=== PATIENT | male | born 1940 | race Caucasian/White ===

== ENCOUNTER 2019-10-25 05:11 | Inpatient (IN) ==
[2019-10-15 16:40] LABS: Appearance,Urine CLEAR; Bilirubin,Urine NEG (NEG); Color,Urine YELLOW; Culture Indicated,Urine NO; Glucose,Urine (UA) NEGATIVE (NEG); Ketones,Urine NEG (NEG); Leukocyte Esterase,Urine NEG /uL (NEG); Nitrate,Urine NEG (NEG); Protein,Urine NEG (NEG); Specific Gravity,Urine 1.012 (1.000-1.035); Urine Blood NEG mg/dL (<0.03); Urobilinogen,Urine NEG (NEG)
[2019-10-15 18:43] LABS: Basophils # (Auto) 0.04 K/mcL (0.00-0.30); Basophils % (Auto) 0.7 % (0.0-2.0); Eosinophils # (Auto) 0.08 K/mcL (0.00-0.70); Eosinophils % (Auto) 1.4 % (0.0-7.0); Hematocrit 38.6 % (40.1-51.0); Hemoglobin 12.8 g/dL (13.7-17.5); Lymphocytes # (Auto) 1.84 K/mcL (1.50-4.80); Lymphocytes % (Auto) 31.5 % (15.5-49.0); Mean Cell Volume 100.3 fL (80.0-100.0); Mean Corpuscular HGB Conc 33.2 g/dL (31.0-36.0); Mean Platelet Volume 11.3 fL (7.4-10.4); Monocytes # (Auto) 0.96 K/mcL (0.10-0.90); Monocytes % (Auto) 16.4 % (1.0-12.0); Platelet Count 159 K/mcL (140-440); RBC 3.85 M/mcL (4.63-6.08); WBC 5.8 K/mcL (4.50-11.00)
[2019-10-15 19:04] LABS: Prothrombin Time 14.1 sec (11.9-14.5)
[2019-10-15 19:20] LABS: ALT/SGPT 10 U/l (0-40); AST/SGOT 15 U/l (0-37); Albumin 4.2 gm/dL (3.2-5.2); Albumin/Globulin Ratio 1.4 (1.0-2.3); Alkaline Phosphatase 51 U/L (39-117); Bilirubin,Total 0.3 mg/dL (0.0-1.0); Blood Urea Nitrogen 20 mg/dl (8-23); Calcium 9.5 mg/dl (8.6-10.4); Carbon Dioxide 28 mmol/L (22-30); Chloride 100 mmol/L (96-108); Glomerular Filtration Rate 53; Glucose 87 mg/dL (70-105)
[2019-10-19 11:58] LABS: Hemoglobin A1C 6.1 % HGB (4.0-6.0)
[~2019-10-25 05:11] MED LIST: IPRATROPIUM/ALBUTEROL 3 ML AMPUL.NEB NEB PRN; SCOPOLAMINE 1 PATCH PATCH TOPICAL PRN
[2019-10-25] MEDS ORDERED: CELECOXIB 200 MG CAPSULE PO SCH ×2 (07:00→12:03)
[2019-10-25] MEDS ORDERED: PREGABALIN 75 MG CAPSULE PO SCH ×2 (07:00→12:03)
[2019-10-25] MEDS ORDERED: ceFAZolin 2 GM in DEXTROSE 5% IN WATER 50 ML IV SCH ×2 (07:00→12:03)
[2019-10-25] MEDS ORDERED: oxyCODONE 10 MG TAB.ER.12H PO SCH ×2 (07:00→12:03)
[2019-10-25] MEDS ORDERED: PHENYLEPHRINE 10 MG/ML VIAL IV ONE (07:45)
[2019-10-25] MEDS ORDERED: SUCCINYLCHOLINE 20 MG/ML ML IV ONE (07:45)
[2019-10-25] MEDS ORDERED: DEXAMETHASONE 10 MG/ML VIAL IV ONE (07:45)
[2019-10-25] MEDS ORDERED: HETASTARCH 6% 500 ML BAG IV ONE (07:45)
[2019-10-25] MEDS ORDERED: ONDANSETRON 4 MG/2 ML VIAL IV ONE (07:45)
[2019-10-25] MEDS ORDERED: TRANEXAMIC ACID 1,000 MG/10 ML VIAL IV ONE ×2 (07:45→12:06)
[2019-10-25] MEDS ORDERED: fentaNYL 100 MCG/2 ML VIAL IV ONE (07:45)
[2019-10-25] MEDS ORDERED: LIDOCAINE HCL/PF 100 MG/5 ML SYRINGE IV ONE (07:45)
[2019-10-25] MEDS ORDERED: ePHEDrine 50 MG/ML AMPUL IV ONE (07:45)
[2019-10-25] MEDS ORDERED: PROPOFOL 200 MG/20 ML VIAL IV ONE (07:45)
[2019-10-25] MEDS ORDERED: KETAMINE 100 MG/ML ML IV ONE (07:45)
[2019-10-25] MEDS ORDERED: GLYCOPYRROLATE 0.2 MG/ML VIAL IV ONE (07:45)
[2019-10-25] MEDS ORDERED: 0.9 % SODIUM CHLORIDE 250 ML IV SCH ×2 (09:00→12:03)
[2019-10-25] MEDS ORDERED: ePHEDrine 50 MG/ML AMPUL IV PRN (09:20)
[2019-10-25] MEDS ORDERED: METHOCARBAMOL 1,000 MG/10 ML VIAL IV PRN (09:20)
[2019-10-25] MEDS ORDERED: diphenhydrAMINE 50 MG/ML VIAL IV PRN (09:20)
[2019-10-25] MEDS ORDERED: ACETAMINOPHEN 1,000 MG/100 ML BOTTLE IV ONE (09:20)
[2019-10-25] MEDS ORDERED: MEPERIDINE 25 MG/ML SYRINGE IV PRN (09:20)
[2019-10-25] MEDS ORDERED: ONDANSETRON 4 MG/2 ML VIAL IV PRN ×4 (09:20→12:06)
[2019-10-25] MEDS ORDERED: METOPROLOL TARTRATE 5 MG/5 ML VIAL IV PRN ×2 (09:20→12:42)
[2019-10-25] MEDS ORDERED: IPRATROPIUM/ALBUTEROL 3 ML AMPUL.NEB NEB PRN ×2 (09:20→12:03)
[2019-10-25] MEDS ORDERED: PROMETHAZINE 25 MG/ML VIAL IV PRN (09:20)
[2019-10-25] MEDS ORDERED: ATROPINE SULFATE 0.4 MG/ML VIAL IV PRN (09:20)
[2019-10-25] MEDS: TRANEXAMIC ACID 1,000 MG/10 ML VIAL IV ONE ×2 (09:23→11:41)
[2019-10-25] MEDS ORDERED: LACTATED RINGERS 1,000 ML IV SCH (09:30)
--- NOTE | 2019-10-25 09:46 | Brief Operative Note ---
Date of procedure: 10/25/19 Pre-op diagnosis: L hip arthrosis Post-op diagnosis: same Procedure: Left Total hip Grafts/Implants: Yes Anesthesia: GETA, spinal Findings: large lipoma Surgeon: Andrew Myers Continuous Vulcanizing Machine Operator: Chauncey Kennedy Specimens Removed/Pathology: other (large lipoma) Condition: stable Disposition: PACU
[2019-10-25 10:08] LABS: POC Blood Urea Nitrogen 15 mg/dl (8-23); POC CO2 23 mmol/L (22-30); POC Chloride 106 mmol/L (96-108); POC Creatinine 1.2 mg/dl (0.7-1.2); POC Glucose, Random 167 mg/dL (70-105); POC Potassium 4.5 mmol/L (3.3-5.1); POC Sodium 143 mmol/L (133-145)
--- NOTE | 2019-10-25 10:09 | XRay Report ---
CLINICAL INFORMATION: left anterior total hip arthroplasty COMPARISON: None. FINDINGS: Multiple digital images from the OR are submitted. Final images show left total hip prostheses in anatomic position. No osseous abnormality. Soft tissue swelling seen - as expected IMPRESSION: Left total hip prostheses in anatomic alignment. Interpreted and Authenticated by: López Peters 10/25/19
[2019-10-25] MEDS: fentaNYL 100 MCG/2 ML VIAL IV PRN ×5 (10:10→10:58)
[2019-10-25] MEDS ORDERED: DEXTROSE 50% 50 ML VIAL IV PRN ×2 (11:32→12:03)
[2019-10-25] MEDS ORDERED: DEXTROSE 31 GM ORAL.SUSP PO PRN ×2 (11:32→12:03)
[2019-10-25] MEDS ORDERED: 0.9 % SODIUM CHLORIDE 1,000 ML IV SCH (11:45)
--- NOTE | 2019-10-25 11:52 | Internal Medicine Consult Note ---
Medical - CN: HPI - Data of Consult Consult date: 10/25/19 Requesting physician: Andrew Myers Primary Care Provider: Hunter Mckeon - Consult Narrative Reason for consult: postop, blood loss History of present illness: Mr. Schuster is a 78 year old M with a hx of atrial flutter, itral valve insuffi ciency, s/p repair and high blood pressure who underwent left hip replacement this morning by Orth Dr. Myers. I was called for medical consult due to patient's heart condition and also bleeding 1000 cc during the procedure. Saw and examined patient immediately in PACU. Patient patient was alert and awake. She complains of left hip pain otherwise he did not answer any questions. CC: Andrew Myers Review of systems: Unable to complete because the patient does not answer any questions Medical - CN: PMH Pertinent family history: Unable to complete because the patient does not answer any questions Medical - CN: Meds Home Medications Medication Instructions Recorded Confirmed Type Allopurinol [Zylopriim] 300 mg PO DAILY 10/15/19 10/15/19 History Cyanocobalamin (Vitamin B-12) 2,000 mcg PO DAILY 10/15/19 10/15/19 History [Vitamin B-12] Ferrous Gluconate [Fergon] 324 mg PO DAILY 10/15/19 10/15/19 History Levothyroxine [Synthroid] 75 mcg PO QAMAC 10/15/19 10/15/19 History Losartan [Cozaar] 100 mg PO DAILY 10/15/19 10/15/19 History Torsemide [Demadex] 20 mg PO BIDD 10/15/19 10/15/19 History Vitamin D3 5,000 unit PO DAILY 10/15/19 10/15/19 History metFORMIN [Glucophage] 500 mg PO BIDCC 10/15/19 10/15/19 History traMADol [Ultram] 100 mg PO TID 10/15/19 10/15/19 History Allergies Allergy/AdvReac Type Severity Reaction Status Date / Time niacin Allergy Severe Anaphylaxis Verified 12/15/15 08:18 Medical - CN: Exam - Constitutional Vitals: Temp Pulse Resp BP Pulse Ox 99.6 F H 55 L 12 115/68 97 10/25/19 06:45 10/25/19 11:18 10/25/19 11:18 10/25/19 11:18 10/25/19 11:18 - Additional findings Additional findings: General - No acute distress Eyes - PERRLA, EOM intact ENT no rhinorrhea, no noticeable or palpable swelling, no redness or rash around throat or on face Neck supple, no JVD, no thyromegaly Respiratory: Lungs -clear, no wheezing or crackles. Cardiovascular - RRR no m/r/g, GI - Normal bowel sounds, no distended, soft. Extremeties - No edema, cyanosis or clubbing. Dressing dry Hemo/lymphatic/immune no lymphadenopathy Neurological Alert and oriented x 3, no focal neurological deficits. Psychiatry flat affect Medical - CN: Result - Labs CBC & Chem 7: 10/15/19 15:05 10/15/19 15:05 Medical - CN: A/P - Narrative A/P Narrative: Assessment: 1. S/p left hip replacement 2. Anemia of blood loss 2. Hx of atrial flutter 3. Mitral valve insufficiency, s/p repair 4. HTN 5. DM type 2 ? Plan: 1. Postop management including pain control and DVT prophylaxis by Ortho team 2. media monitor H/H Q12hrs IV fluid 3. EKG showed sinus or ectopic atrial rhythm Heart rate is controlled Patient is not on anticoagulation. We will discuss with the patient. 4. Monitor blood pressure 5. Diabetic diet Metformin is on hold Insulin sliding scale Hemoglobin A1c 6. DVT prophylaxis: No pharmacological DVT prophylaxis. SCD 7. CODE STATUS: Patient does not answer any questions now. We need to discuss with the patient later.
--- NOTE | 2019-10-25 11:56 | XRay Report ---
CLINICAL INFORMATION: s/p left anterior total hip arthroplasty COMPARISON: None. FINDINGS: Left total hip prosthesis in anatomic position. No osseous abnormality. Both SI and right hip joint is normal in width and alignment without arthritic change. Cam configuration right femoral head and neck noted. Mild soft tissue swelling of the surgical site seen - as expected IMPRESSION: Left hip prostheses in anatomic alignment. Interpreted and Authenticated by: López Peters 10/25/19
[2019-10-25] MEDS ORDERED: SCOPOLAMINE 1 PATCH PATCH TOPICAL PRN (12:03)
[2019-10-25] MEDS ORDERED: MAGNESIUM HYDROXIDE 30 ML ORAL.SUSP PO PRN (12:06)
[2019-10-25] MEDS ORDERED: BENZOCAINE/MENTHOL 1 LOZENGE PO PRN (12:06)
[2019-10-25] MEDS ORDERED: FLEETS ADULT ENEMA PR PRN (12:06)
[2019-10-25] MEDS ORDERED: BISACODYL 10 MG SUPP.RECT PR PRN (12:06)
[2019-10-25] MEDS ORDERED: POLYETHYLENE GLYCOL 3350 17 GM PACKET PO PRN (12:06)
[2019-10-25] MEDS ORDERED: LABETALOL 5 MG/ML ML IV PRN (12:41)
--- NOTE | 2019-10-25 12:43 | Internal Med Progress Note ---
Medical - PN: Subj Patient information: Note initiated : 10/25/19 at 12:33 pm Service Date, if different from initiated Date: [] Patient: Katie Schuster a 78 y/o M admitted on 10/25/19 for Left Anterior Total Hip Arthroplasty. Chief Complaint: [] Interval history: Mr. Schuster is a 78 year old M with a hx of atrial flutter, itral valve insufficiency, s/p repair and high blood pressure who underwent left hip replacement this morning by Orth Dr. Myers. I was called for medical consult due to patient's heart condition and also bleeding 1000 cc during the procedure. Saw and examined patient immediately in PACU. Patient patient was alert and awake. She complains of left hip pain otherwise he did not answer any questions. 10/25 - Constitutional Vitals: Vital Signs Temp Pulse Resp BP Pulse Ox 98.3 F 55 L 8 L 103/74 100 10/25/19 11:32 10/25/19 11:18 10/25/19 11:32 10/25/19 11:32 10/25/19 11:32 Period Temp Pulse Resp BP Sys/Michelle Pulse Ox Last 24 Hr 98.3 F-99.6 F 55-76 8-20 103-152/63-86 90-100 Intake and Output 10/24/19 10/25/19 10/25/19 21:59 05:59 13:59 Intake Total 120 2600 Output Total 1250 Balance 120 1350 Weight 104.417 kg 102.603 kg Patient Weight 10/26/19 05:59 Weight 102.603 kg Intake & Output: Intake & Output 10/24/19 10/25/19 10/25/19 21:59 05:59 13:59 Intake Total 120 2600 Output Total 1250 Balance 120 1350 Weight 104.417 kg 102.603 kg Intake: IV 100 Oral 0 Clear Carbohydrate Drink 120 IV - Manual Only 2500 Output: Void Amount 0 Estimated Blood Loss 1250 Exam: General: Alert, Awake, No acute Distress Eyes/N/T: EOMI, Head/Neck: neck supple, CV: , No murmurs, Pulm: Clear b/l, no wheezing/rhonchi/rales Abd: soft, nontender, +BS x4 Ext: no clubbing/cyanosis/edema. E dressing intact Neuro: Alert, no focal deficits, moves all extremities, Skin: warm/dry Medical - PN: Obj Da - Labs CBC & Chem 7: 10/15/19 15:05 10/15/19 15:05 Labs: Abnormal Lab Results 10/25/19 10:00 POC Hct 31.0 L POC Glucose 167 H Meds: Medications Aspirin (Ecotrin) 325 mg PO BID [facility] Bisacodyl (Dulcolax) 10 mg MN Q2-3DAYS PRN PRN Reason: Constipation Cefazolin Sodium (Ancef) 1 gm IV Q8H [facility] Stop: 10/25/19 20:16 Cyanocobalamin (Vitamin B-12) 2,000 mcg PO DAILY [facility] Dextrose (Dextrose 50%) 0 ml IV UD PRN PRN Reason: Hypoglycemia Diagnostic Test (Pha) (Accu-Chek) 1 each FS ACHS [facility] Docusate Sodium (Colace) 100 mg PO BID [facility] Docusate Sodium (Colace) 100 mg PO BID [facility] Ferrous Gluconate (Fergon) 324 mg PO DAILY [facility] Glucose (Insta-Glucose) 15 gm PO PRN PRN PRN Reason: Hypoglycemia Hydromorphone HCl (Dilaudid) 0 mg IV Q2HP PRN; Protocol PRN Reason: Per Pain Protocol Sodium Chloride (Sodium Chloride 0.9%) 1,000 mls @ 75 mls/hr IV .[id number] [facility] Sodium Chloride (Sodium Chloride 0.9%) 1,000 mls @ 100 mls/hr IV .Q10H [facility] Insulin Human Lispro (Humalog) 0 unit SQ ACHS [facility]; Protocol Levothyroxine Sodium (Synthroid) 75 mcg PO QAMAC [facility] Losartan Potassium (Cozaar) 100 mg PO DAILY [facility] Magnesium Hydroxide (Milk Of Magnesia) 30 ml PO BIDP PRN PRN Reason: Constipation Methocarbamol (Robaxin) 750 mg PO Q6HP PRN PRN Reason: Muscle Spasm Ondansetron HCl (Zofran) 4 mg IV Q4HP PRN; Protocol PRN Reason: Nausea And Vomiting Ondansetron HCl (Zofran) 4 mg IV Q4HP PRN PRN Reason: Nausea And Vomiting Oxycodone/Acetaminophen (Percocet 5-325 Mg) 0 tab PO Q4HP PRN PRN Reason: PAIN LEVEL 3-6 Polyethylene Glycol (Miralax) 17 gm PO DAILYP PRN PRN Reason: Constipation Senna (Senokot) 2 tab PO HS [facility] Sodium Biphosphate/Sodium Phosphate (Fleets Adult) 1 dose MN Q3-4DAYS PRN PRN Reason: Constipation Sodium Chloride (Saline Flush) 10 ml IV Q8 [facility] Sodium Chloride (Saline Flush) 10 ml IV Q8 [facility] Throat Lozenges (Cepacol) 1 lozenge PO PRN PRN PRN Reason: Sore Throat Tranexamic Acid (Tranexamic Acid) 1,000 mg IV ONCE ONE Stop: 10/25/19 12:07 Medical - PN: A/P - Time Spent With Patient Total time spent is greater than 50% in coordination of care (as documented) at patient's floor/unit and/or counseling patient: - Narrative A/P Narrative: *s/p Left TUNDE (10/24): *Anemia, acute blood loss: *Hx of atrial flutter: -EKG showed sinus or ectopic atrial. In [address] on anticoagulation for recurrent hematuria *Mitral valve insufficiency, s/p repair: *HTN: *Pre-Diabetes: A1c 6.1 *CKD II-III: *Hypothyroidism: Plan: -Postop management including pain control and DVT prophylaxis by Ortho team -quality assurance monitor body -H/H Q12hrs -IV fluid -Patient is not on anticoagulation. We will discuss with the patient. -Monitor blood pressure, ADA diet, Metformin is on hold, SSI -cont home ARB -start home torsemide in AM -ppx: SCD
[2019-10-25] MEDS ORDERED: HYDROmorphone 0.5 MG/0.5 ML SYRINGE ONE (12:44)
[2019-10-25] MEDS: 0.9 % SODIUM CHLORIDE 1,000 ML IV SCH ×3 (12:45→20:21)
[2019-10-25] MEDS ORDERED: HYDROmorphone 1 MG/ML SYRINGE ONE (13:39)
[2019-10-25] MEDS: HYDROmorphone 1 MG/ML SYRINGE IV PRN ×2 (13:40→15:51)
[2019-10-25] MEDS ORDERED: 0.9 % SODIUM CHLORIDE 10 ML SYRINGE IV SCH (14:00)
[2019-10-25 14:28] LABS: Basophils # (Auto) 0.01 K/mcL (0.00-0.30); Basophils % (Auto) 0.1 % (0.0-2.0); Eosinophils # (Auto) 0 K/mcL (0.00-0.70); Eosinophils % (Auto) 0 % (0.0-7.0); Hematocrit 31.6 % (40.1-51.0); Hemoglobin 10.4 g/dL (13.7-17.5); Lymphocytes # (Auto) 0.71 K/mcL (1.50-4.80); Lymphocytes % (Auto) 5.9 % (15.5-49.0); Mean Cell Volume 99.7 fL (80.0-100.0); Mean Corpuscular HGB Conc 32.9 g/dL (31.0-36.0); Mean Platelet Volume 10.7 fL (7.4-10.4); Monocytes # (Auto) 0.12 K/mcL (0.10-0.90); Platelet Count 152 K/mcL (140-440); RBC 3.17 M/mcL (4.63-6.08); Red Cell Distribution Width 13.7 % (11.5-14.5)
[2019-10-25 14:40] LABS: INR 1.2 (0.9-1.1); Prothrombin Time 15.6 sec (11.9-14.5)
[2019-10-25 14:47] LABS: ALT/SGPT 8 U/l (0-40); AST/SGOT 19 U/l (0-37); Albumin 3.5 gm/dL (3.2-5.2); Alkaline Phosphatase 38 U/L (39-117); Bilirubin,Direct < 0.2 mg/dL (0.0-0.3); Bilirubin,Total 0.4 mg/dL (0.0-1.0); Blood Urea Nitrogen 16 mg/dl (8-23); Calcium 8.8 mg/dl (8.6-10.4); Carbon Dioxide 22 mmol/L (22-30); Chloride 103 mmol/L (96-108); Glomerular Filtration Rate 58; Glucose 214 mg/dL (70-105); Lactate Dehydrogenase 221 U/L (94-250); Phosphorous 3.3 mg/dL (2.7-4.5); Triglycerides 174 mg/dl (<150); Uric Acid 4.8 mg/dL (2.5-8.0)
[2019-10-25 14:49] LABS: Albumin/Globulin Ratio 1.6 (1.0-2.3); Globulin 2.2 gm/dL (2.2-3.7)
[2019-10-25] MEDS: METHOCARBAMOL 750 MG TABLET PO PRN ×2 (15:30→21:25)
[2019-10-25] MEDS: 0.9 % SODIUM CHLORIDE 10 ML SYRINGE IV SCH ×4 (15:41→20:12)
[2019-10-25] MEDS ORDERED: ACETAMINOPHEN 1,000 MG/100 ML BOTTLE IV PRN (15:46)
[2019-10-25] MEDS: INSULIN LISPRO 1 UNIT/0.01 ML UNIT SQ SCH ×2 (16:07→20:20)
[2019-10-25] MEDS: ceFAZolin 1 GM VIAL IV SCH ×2 (16:08→23:40)
[2019-10-25] MEDS: LORazepam 2 MG/ML VIAL IV PRN ×2 (16:08→23:39)
[2019-10-25] MEDS: CELECOXIB 200 MG CAPSULE PO SCH (16:25)
[2019-10-25] MEDS ORDERED: INSULIN LISPRO 1 UNIT/0.01 ML UNIT SQ SCH (17:00)
[2019-10-25] MEDS ORDERED: metFORMIN 500 MG TAB.XL.24H PO SCH (17:30)
[2019-10-25] MEDS: oxyCODONE/APAP 5/325MG TABLET PO PRN ×2 (17:40→21:25)
[2019-10-25] MEDS: DOCUSATE SODIUM 100 MG CAPSULE PO SCH ×2 (20:12→20:14)
[2019-10-25] MEDS: ASPIRIN 325 MG ENTERIC COATED TABLET PO SCH (20:14)
[2019-10-25] MEDS: SENNOSIDES 1 TABLET PO SCH (20:14)
[2019-10-25] MEDS ORDERED: DOCUSATE SODIUM 100 MG CAPSULE PO SCH (21:00)
[2019-10-26] MEDS: 0.9 % SODIUM CHLORIDE 1,000 ML IV SCH (01:23)
[2019-10-26] MEDS: CELECOXIB 200 MG CAPSULE PO SCH ×3 (01:23→20:12)
[2019-10-26] MEDS: oxyCODONE/APAP 5/325MG TABLET PO PRN ×5 (01:23→18:51)
[2019-10-26] MEDS: LORazepam 2 MG/ML VIAL IV PRN (04:23)
[2019-10-26] MEDS: 0.9 % SODIUM CHLORIDE 10 ML SYRINGE IV SCH ×6 (04:24→20:13)
[2019-10-26] MEDS: METHOCARBAMOL 750 MG TABLET PO PRN ×3 (05:19→20:12)
[2019-10-26 07:02] LABS: Basophils # (Auto) 0.01 K/mcL (0.00-0.30); Basophils % (Auto) 0.1 % (0.0-2.0); Eosinophils # (Auto) 0 K/mcL (0.00-0.70); Eosinophils % (Auto) 0 % (0.0-7.0); Granulocytes % (Auto) 77.1 % (38.0-78.0); Hematocrit 27.2 % (40.1-51.0); Hemoglobin 8.7 g/dL (13.7-17.5); Lymphocytes # (Auto) 0.86 K/mcL (1.50-4.80); Lymphocytes % (Auto) 7.8 % (15.5-49.0); Mean Cell Volume 101.5 fL (80.0-100.0); Mean Platelet Volume 11.3 fL (7.4-10.4); Monocytes # (Auto) 1.65 K/mcL (0.10-0.90); Platelet Count 149 K/mcL (140-440); RBC 2.68 M/mcL (4.63-6.08); Red Cell Distribution Width 14.1 % (11.5-14.5)
[2019-10-26] MEDS: LEVOTHYROXINE 75 MCG TABLET PO SCH (07:21)
[2019-10-26] MEDS ORDERED: LEVOTHYROXINE 75 MCG TABLET PO SCH (07:30)
[2019-10-26 07:33] LABS: Bilirubin,Direct < 0.2 mg/dL (0.0-0.3); Chloride 104 mmol/L (96-108)
[2019-10-26 07:34] LABS: ALT/SGPT 8 U/l (0-40); AST/SGOT 27 U/l (0-37); Albumin 3.1 gm/dL (3.2-5.2); Albumin/Globulin Ratio 1.4 (1.0-2.3); Alkaline Phosphatase 31 U/L (39-117); Bilirubin,Total 0.3 mg/dL (0.0-1.0); Blood Urea Nitrogen 20 mg/dl (8-23); Calcium 8.3 mg/dl (8.6-10.4); Carbon Dioxide 20 mmol/L (22-30); Globulin 2.2 gm/dL (2.2-3.7); Glomerular Filtration Rate 64; Glucose 158 mg/dL (70-105); Lactate Dehydrogenase 230 U/L (94-250); Triglycerides 145 mg/dl (<150); Uric Acid 5.2 mg/dL (2.5-8.0)
[2019-10-26 07:35] LABS: ALT/SGPT 8 U/l (0-40); AST/SGOT 27 U/l (0-37); Albumin 3.3 gm/dL (3.2-5.2); Albumin/Globulin Ratio 1.7 (1.0-2.3); Alkaline Phosphatase 30 U/L (39-117); Bilirubin,Total 0.3 mg/dL (0.0-1.0); Blood Urea Nitrogen 20 mg/dl (8-23); Calcium 8.5 mg/dl (8.6-10.4); Carbon Dioxide 19 mmol/L (22-30); Chloride 104 mmol/L (96-108); Globulin 1.9 gm/dL (2.2-3.7); Glomerular Filtration Rate 58; Glucose 157 mg/dL (70-105)
--- NOTE | 2019-10-26 07:39 | Orthopedic Progress Note ---
Subjective Patient information: Note initiated : 10/26/19 at 7:37 am Service Date, if different from initiated Date: [] Patient: Katie Schuster a 78 y/o M admitted on 10/25/19 for Left Anterior Total Hip Arthroplasty. Chief Complaint: [S/P LEFT TUNDE] PATIENT IS DOING WELL AND HAS NO PARTICULAR COMPLAINTS RELATED TO HIS LEFT HIP. HE DOES HAVE SOME VAGUE BILATERAL RADICULAR/CLAUDICATION-LIKE SYMPTOMS. HE DENIES ANY NEW ONSET CHEST PAIN, SOA, OR LOWER EXTREMITY CALF TENDERNESS. Principal diagnosis: S/P LEFT TUNDE Objective Vital signs: Vital Signs Temp Pulse Pulse Pulse Pulse Resp BP 10/26/19 06:02 24 H 123/65 10/26/19 04:02 99.4 F H 44 L 18 120/60 10/26/19 02:04 19 122/45 10/26/19 01:52 55 L 22 10/26/19 00:02 98.1 F 58 L 13 106/66 10/25/19 22:01 59 L 9 L 137/66 10/25/19 20:27 98.3 F 76 16 140/81 10/25/19 19:01 55 L 16 110/69 10/25/19 18:01 64 21 102/63 10/25/19 17:01 73 19 121/65 10/25/19 16:10 75 16 10/25/19 16:02 81 21 115/91 10/25/19 15:46 73 26 H 126/88 10/25/19 15:31 17 113/68 10/25/19 15:16 97.2 F 73 15 108/68 10/25/19 15:01 64 12 108/88 10/25/19 14:46 70 10 L 117/75 10/25/19 14:42 69 11 L 114/67 10/25/19 14:34 95/69 10/25/19 14:32 77 17 78/68 10/25/19 14:16 73 15 111/74 10/25/19 14:01 74 19 102/76 10/25/19 13:42 98 H 21 113/82 10/25/19 13:40 40 L 14 165/130 10/25/19 13:18 75 18 110/56 10/25/19 13:02 68 28 H 94/76 10/25/19 12:46 12 107/68 10/25/19 12:31 75 17 110/68 10/25/19 12:16 60 12 107/71 10/25/19 12:01 54 L 14 116/66 10/25/19 11:46 58 L 15 110/63 10/25/19 11:39 55 L 12 103/74 10/25/19 11:36 64 158/135 10/25/19 11:32 98.3 F 8 L 10/25/19 11:18 55 L 55 L 12 10/25/19 11:11 62 62 13 10/25/19 11:00 55 L 55 L 15 10/25/19 10:45 65 65 17 10/25/19 10:30 65 15 10/25/19 10:15 74 74 14 10/25/19 10:08 76 76 14 10/25/19 10:03 73 73 15 10/25/19 09:58 73 73 17 BP BP Pulse Ox 10/26/19 06:02 96 10/26/19 04:02 92 10/26/19 02:04 98 10/26/19 01:52 93 10/26/19 00:02 93 10/25/19 22:01 100 10/25/19 20:27 98 10/25/19 19:01 100 10/25/19 18:01 100 10/25/19 17:01 98 10/25/19 16:10 97 10/25/19 16:02 96 10/25/19 15:46 100 10/25/19 15:31 10/25/19 15:16 100 10/25/19 15:01 97 10/25/19 14:46 99 10/25/19 14:42 98 10/25/19 14:34 10/25/19 14:32 78/68 10/25/19 14:16 100 10/25/19 14:01 100 10/25/19 13:42 99 10/25/19 13:40 90 10/25/19 13:18 100 10/25/19 13:02 99 10/25/19 12:46 10/25/19 12:31 100 10/25/19 12:16 100 10/25/19 12:01 95 10/25/19 11:46 98 10/25/19 11:39 99 10/25/19 11:36 99 10/25/19 11:32 103/74 100 10/25/19 11:18 115/68 97 10/25/19 11:11 133/66 98 10/25/19 11:00 127/71 10/25/19 10:45 128/75 96 10/25/19 10:30 128/69 95 10/25/19 10:15 125/66 97 10/25/19 10:08 108/73 95 10/25/19 10:03 127/63 97 10/25/19 09:58 117/69 90 Intake and Output 10/25/19 10/26/19 10/26/19 21:59 05:59 13:59 Intake Total 1304 240 Output Total 400 750 Balance 904 -510 Intake: IV 404 Sodium Chloride 0.9% 1,000 ml @ 209 75 mls/hr IV .[id number] [facility] Rx#: [id number] Lactated Ringers 1,000 ml @ 20 95 mls/hr IV .Q24H [facility] Rx#: [id number] Oral 900 240 Output: Void Amount 400 750 Other: Urine Appearance Clear Clear Urine Color Dark Yellow Dark Yellow Urine Odor Normal Normal Weight 224 lb Intake & Output: Intake & Output 10/25/19 10/26/19 10/26/19 21:59 05:59 13:59 Intake Total 1304 240 Output Total 400 750 Balance 904 -510 Weight 224 lb Intake: IV 404 Sodium Chloride 0.9% 1,000 ml @ 209 75 mls/hr IV .[id number] [facility] Rx#: [id number] Lactated Ringers 1,000 ml @ 20 95 mls/hr IV .Q24H [facility] Rx#: [id number] Oral 900 240 Output: Void Amount 400 750 Other: Urine Appearance Clear Clear Urine Color Dark Yellow Dark Yellow Urine Odor Normal Normal Incision: Yes healing, Yes clean and dry Incision clean and dry: Yes Dressing: Yes clean, Yes dry, Yes intact Weight bearing status: full Neurological exam IM: Yes alert, Yes oriented X3, Yes motor sensory intact, Yes neurovascular intact Extremities exam IM: Yes calf tenderness (NEGATIVE BILATERALLY), Yes Hill's sign (NEGATIVE BILATERALLY), Yes Foot pink and warm, Yes neurovascular intact - Labs CBC & BMP: 10/26/19 04:42 10/26/19 04:42 Labs: Orthopedic Labs 10/25/19 10/15/19 13:30 15:05 PT 15.6 H 14.1 INR 1.2 H 1.0 10/26/19 10/26/19 10/25/19 04:42 04:42 13:30 Hgb 8.7 L 10.4 L Hct 27.2 L TNP 31.6 L 10/15/19 15:05 Hgb 12.8 L Hct 38.6 L Assessment and Plan (1) S/P total hip arthroplasty LIKELY DISCHARGE TO HOME TOMORROW IF MEDICALLY STABLE PER HOSPITALIST. REPEAT HGB/HCT TOMORROW AM. AMBULATE TODAY WITH PT. Status: Acute
--- NOTE | 2019-10-26 07:47 | Internal Med Progress Note ---
Medical - PN: Subj Patient information: Note initiated : 10/26/19 at 7:43 am Service Date, if different from initiated Date: [] Patient: Katie Schuster a 78 y/o M admitted on 10/25/19 for Left Anterior Total Hip Arthroplasty. Chief Complaint: [] Interval history: Mr. Schuster is a 78 year old M with a hx of atrial flutter, itral valve insufficiency, s/p repair and high blood pressure who underwent left hip replacement this morning by Orth Dr. Myers. I was called for medical consult due to patient's heart condition and also bleeding 1000 cc during the procedure. Saw and examined patient immediately in PACU. Patient patient was alert and awake. She complains of left hip pain otherwise he did not answer any questions. 10/25 Patient has hip pain and lower back pain that is chronic. Poor sleep past couple nights. No chest pain shortness of breath or new complaints. Review of Systems: denies headache/fever/chills/nausea/vomiting/chest or abdominal pain/cough/dyspnea/diarrhea. Otherwise see above. - Constitutional Vitals: Vital Signs Temp Pulse Resp BP Pulse Ox 99.4 F H 44 L 24 H 123/65 96 10/26/19 04:02 10/26/19 04:02 10/26/19 06:02 10/26/19 06:02 10/26/19 06:02 Period Temp Pulse Resp BP Sys/Michelle Pulse Ox Last 24 Hr 97.2 F-99.4 F 40-98 8-28 78-165/45-135 90-100 Intake and Output 10/25/19 10/26/19 10/26/19 21:59 05:59 13:59 Intake Total 1304 240 120 Output Total 400 750 Balance 904 -510 120 Weight 101.605 kg Intake & Output: Intake & Output 10/25/19 10/26/19 10/26/19 21:59 05:59 13:59 Intake Total 1304 240 120 Output Total 400 750 Balance 904 -510 120 Weight 101.605 kg Intake: IV 404 Sodium Chloride 0.9% 1,000 ml @ 209 75 mls/hr IV .[id number] [facility] Rx#: [id number] Lactated Ringers 1,000 ml @ 20 95 mls/hr IV .Q24H [facility] Rx#: [id number] Oral 900 240 120 Output: Void Amount 400 750 Other: Urine Appearance Clear Clear Urine Color Dark Yellow Dark Yellow Urine Odor Normal Normal Exam: General: Alert, Awake, No acute Distress Eyes/N/T: EOMI, Head/Neck: neck supple, CV: regular with occasional ectopic, No murmurs, Pulm: Clear b/l, no wheezing/rhonchi/rales Abd: soft, nontender, +BS x4 Ext: no clubbing/cyanosis/edema. LLE dressing intact Neuro: Alert, no focal deficits, moves all extremities, Skin: warm/dry Medical - PN: Obj Da - Labs CBC & Chem 7: 10/26/19 04:42 10/26/19 04:42 Labs: Abnormal Lab Results 10/26/19 10/26/19 10/26/19 04:42 04:42 04:42 WBC RBC 2.68 L Hgb 8.7 L Hct 27.2 L POC Hct MCV 101.5 H MPV 11.3 H Gran % Lymph % (Auto) 7.8 L [place] % (Auto) 15.0 H Gran # 8.48 H Lymph # (Auto) 0.86 L [place] # (Auto) 1.65 H PT INR Carbon Dioxide 20 L 19 L Glucose 158 H 157 H POC Glucose Calcium 8.3 L 8.5 L Alkaline Phosphatase 31 L 30 L Total Protein 5.3 L 5.2 L Albumin 3.1 L Globulin 1.9 L Triglycerides 10/25/19 10/25/19 10/25/19 13:30 13:30 13:30 WBC 12.0 H RBC 3.17 L Hgb 10.4 L Hct 31.6 L POC Hct MCV MPV 10.7 H Gran % 93.0 H Lymph % (Auto) 5.9 L [place] % (Auto) Gran # 11.17 H Lymph # (Auto) 0.71 L [place] # (Auto) PT 15.6 H INR 1.2 H Carbon Dioxide Glucose 214 H POC Glucose Calcium Alkaline Phosphatase 38 L Total Protein 5.7 L Albumin Globulin Triglycerides 174 H 10/25/19 10:00 WBC RBC Hgb Hct POC Hct 31.0 L MCV MPV Gran % Lymph % (Auto) [place] % (Auto) Gran # Lymph # (Auto) [place] # (Auto) PT INR Carbon Dioxide Glucose POC Glucose 167 H Calcium Alkaline Phosphatase Total Protein Albumin Globulin Triglycerides Meds: Medications Aspirin (Ecotrin) 325 mg PO BID [facility] Last Admin: 10/25/19 20:14 Dose: 325 mg Documented by: Bisacodyl (Dulcolax) 10 mg NC Q2-3DAYS PRN PRN Reason: Constipation Celecoxib (Celebrex) 200 mg PO BID [facility] Last Admin: 10/26/19 01:23 Dose: 200 mg Documented by: Cyanocobalamin (Vitamin B-12) 2,000 mcg PO DAILY [facility] Dextrose (Dextrose 50%) 0 ml IV UD PRN PRN Reason: Hypoglycemia Diagnostic Test (Pha) (Accu-Chek) 1 each FS ACHS [facility] Last Admin: 10/26/19 07:42 Dose: 1 each Documented by: Docusate Sodium (Colace) 100 mg PO BID [facility] Last Admin: 10/25/19 20:14 Dose: 100 mg Documented by: Docusate Sodium (Colace) 100 mg PO BID [facility] Last Admin: 10/25/19 20:12 Dose: Not Given Documented by: Ferrous Gluconate (Fergon) 324 mg PO DAILY [facility] Glucose (Insta-Glucose) 15 gm PO PRN PRN PRN Reason: Hypoglycemia Hydromorphone HCl (Dilaudid) 0 mg IV Q2HP PRN; Protocol PRN Reason: Per Pain Protocol Last Admin: 10/25/19 15:51 Dose: 1 mg Documented by: Sodium Chloride (Sodium Chloride 0.9%) 1,000 mls @ 75 mls/hr IV .[id number] [facility] Last Admin: 10/26/19 01:23 Dose: Not Given Documented by: Sodium Chloride (Sodium Chloride 0.9%) 1,000 mls @ 100 mls/hr IV .Q10H [facility] Last Admin: 10/25/19 20:21 Dose: 100 mls/hr Documented by: Acetaminophen (Ofirmev) 1,000 mg in 100 mls @ 200 mls/hr IV Q8HP PRN; Protocol PRN Reason: PAIN/FEVER > 101 Last Infusion: 10/25/19 16:39 Dose: Infused Documented by: Insulin Human Lispro (Humalog) 0 unit SQ ACHS [facility]; Protocol Last Admin: 10/25/19 20:20 Dose: 3 unit Documented by: Labetalol HCl (Trandate) 0 mg IV Q2HP PRN PRN Reason: Hypertension Levothyroxine Sodium (Synthroid) 75 mcg PO QAMAC [facility] Last Admin: 10/26/19 07:21 Dose: 75 mcg Documented by: Lorazepam (Ativan) 0.5 - 1 mg IV Q2HP PRN PRN Reason: Anxiety/Sedation/muscle spasms Last Admin: 10/26/19 04:23 Dose: 1 mg Documented by: Losartan Potassium (Cozaar) 100 mg PO DAILY [facility] Magnesium Hydroxide (Milk Of Magnesia) 30 ml PO BIDP PRN PRN Reason: Constipation Methocarbamol (Robaxin) 750 mg PO Q6HP PRN PRN Reason: Muscle Spasm Last Admin: 10/26/19 05:19 Dose: 750 mg Documented by: Metoprolol Tartrate (Lopressor) 5 mg IV Q2HP PRN PRN Reason: Tachyarrhythmias HR>110 Ondansetron HCl (Zofran) 4 mg IV Q4HP PRN; Protocol PRN Reason: Nausea And Vomiting Ondansetron HCl (Zofran) 4 mg IV Q4HP PRN PRN Reason: Nausea And Vomiting Oxycodone/Acetaminophen (Percocet 5-325 Mg) 0 tab PO Q4HP PRN PRN Reason: PAIN LEVEL 3-6 Last Admin: 10/26/19 05:19 Dose: 2 tab Documented by: Polyethylene Glycol (Miralax) 17 gm PO DAILYP PRN PRN Reason: Constipation Last Admin: 10/25/19 16:14 Dose: 17 gm Documented by: Senna (Senokot) 2 tab PO HS [facility] Last Admin: 10/25/19 20:14 Dose: 2 tab Documented by: Sodium Biphosphate/Sodium Phosphate (Fleets Adult) 1 dose NC Q3-4DAYS PRN PRN Reason: Constipation Sodium Chloride (Saline Flush) 10 ml IV Q8 [facility] Last Admin: 10/26/19 04:24 Dose: Not Given Documented by: Sodium Chloride (Saline Flush) 10 ml IV Q8 [facility] Last Admin: 10/26/19 04:24 Dose: Not Given Documented by: Throat Lozenges (Cepacol) 1 lozenge PO PRN PRN PRN Reason: Sore Throat Medical - PN: A/P - Time Spent With Patient Total time spent is greater than 50% in coordination of care (as documented) at patient's floor/unit and/or counseling patient: - Narrative A/P Narrative: *s/p Left TUNDE (10/24): *Anemia, acute blood loss: *Hx of atrial flutter with ablation: -EKG showed sinus or ectopic atrial. 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
--- NOTE | 2019-10-26 08:33 | Operative Note ---
DATE OF OPERATION: 10/25/2019 PREOPERATIVE DIAGNOSIS: Advanced arthrosis of the left hip. POSTOPERATIVE DIAGNOSIS: Advanced arthrosis of the left hip. OPERATION PROPOSED: Left total hip arthroplasty. OPERATION PERFORMED: Left total hip arthroplasty. OPERATING SURGEON: Andrew Myers M.D. RATTLING MACHINE TENDER: Right Brent PA-C. The PA's assistance was required for the safe and efficient completion of the entire case. This provider's expertise and technical skill were required throughout the case. The PA assisted with preoperative coordination, intraoperative retraction, wound closure, dressing and splint application, as well as postoperative documentation and care coordination. INDICATIONS: This is a gentleman who has advanced hip arthrosis. He has failed conservative measures. We have elected to proceed with total hip arthroplasty. OPERATION IN DETAIL: Informed consent was obtained. He was taken to the operating room where he was provided appropriate anesthetic and prophylactic antibiotics. He was carefully positioned. His hip was prepped sterilely. A standard anterior approach to the hip was performed. I dissected through the fascia of the tensor musculature. I dissected up and over the anterior hip. I ligated traversing vasculature. The hip capsule was cut and T'd. I dislocated the femoral neck which allowed me to free capsule from the posterior neck. I performed a femoral neck cut and then exposed the acetabulum. I sequentially reamed and I impacted a [place] cup from [employer]. I then lateralized my approach into the femur. I sequentially broached and then calcar reamed. I selected an Actis stem that was reduced into place with a 36 head ball. The wounds were irrigated thoroughly and closed with an 0 Vicryl in interrupted fashion, 2-0 Vicryl inverted deep dermal, and running subcuticular. The procedure was tolerated well. No complications. GDD:norma Job ID: [id number] Doc ID: [id number] Andrew Myers MD
[2019-10-26] MEDS ORDERED: ALLOPURINOL 300 MG TABLET PO SCH (09:00)
[2019-10-26] MEDS ORDERED: LOSARTAN 50 MG TABLET PO SCH (09:00)
[2019-10-26] MEDS ORDERED: FERROUS GLUCONATE 324 MG TABLET PO SCH (09:00)
[2019-10-26] MEDS ORDERED: CYANOCOBALAMIN (VITAMIN B-12) 500 MCG TABLET PO SCH (09:00)
[2019-10-26] MEDS: INSULIN LISPRO 1 UNIT/0.01 ML UNIT SQ SCH ×4 (09:26→20:13)
[2019-10-26] MEDS: LOSARTAN 50 MG TABLET PO SCH (09:27)
[2019-10-26] MEDS: CYANOCOBALAMIN (VITAMIN B-12) 500 MCG TABLET PO SCH (09:27)
[2019-10-26] MEDS: ALLOPURINOL 300 MG TABLET PO SCH (09:28)
[2019-10-26] MEDS: DOCUSATE SODIUM 100 MG CAPSULE PO SCH ×4 (09:28→20:12)
[2019-10-26] MEDS: VITAMIN D3 5,000 UNIT CAPSULE PO SCH (09:28)
[2019-10-26] MEDS: ASPIRIN 325 MG ENTERIC COATED TABLET PO SCH ×2 (09:28→20:11)
[2019-10-26] MEDS: FERROUS GLUCONATE 324 MG TABLET PO SCH (09:29)
[2019-10-26] MEDS: TORSEMIDE 10 MG TABLET PO SCH ×2 (09:29→15:20)
--- NOTE | 2019-10-26 12:19 | Surgical Pathology Report ---
HISTOLOGY SPECIMEN MICROSCOPIC DIAGNOSIS LIPOMA, LEFT HIP, EXCISION: -- LIPOMA. (EBD:sln) PROCEDURAL IMPRESSION Left hip lipoma. GROSS DESCRIPTION Received in formalin labeled left hip lipoma, is a membranous fatty piece of tissue that measures 10.2 x 5.7 x 3.5 cm. The external surface is inked black. Cut surfaces are ramirez. Watch And Clock Repair Clerk sections submitted in four cassettes. (SCB:sln) Electronically Signed by: Aline Calloway M.D.
[2019-10-26] MEDS ORDERED: TORSEMIDE 10 MG TABLET PO SCH (16:00)
[2019-10-26] MEDS: SENNOSIDES 1 TABLET PO SCH (20:12)
[2019-10-26] MEDS ORDERED: diphenhydrAMINE 25 MG CAPSULE PO ONE (21:00)
[2019-10-26] MEDS ORDERED: MELATONIN 3 MG TABLET PO SCH (21:00)
[2019-10-27] MEDS: oxyCODONE/APAP 5/325MG TABLET PO PRN ×3 (02:23→10:46)
[2019-10-27] MEDS: METHOCARBAMOL 750 MG TABLET PO PRN ×2 (02:23→08:47)
[2019-10-27] MEDS: 0.9 % SODIUM CHLORIDE 10 ML SYRINGE IV SCH ×2 (04:25→12:17)
[2019-10-27] MEDS: LEVOTHYROXINE 75 MCG TABLET PO SCH (06:42)
[2019-10-27] MEDS ORDERED: LORazepam 1 MG TABLET PO ONE (07:06)
[2019-10-27 07:07] LABS: ALT/SGPT 10 U/l (0-40); AST/SGOT 44 U/l (0-37); Albumin 3.4 gm/dL (3.2-5.2); Albumin/Globulin Ratio 1.4 (1.0-2.3); Alkaline Phosphatase 34 U/L (39-117); Bilirubin,Total 0.3 mg/dL (0.0-1.0); Blood Urea Nitrogen 22 mg/dl (8-23); Calcium 8.5 mg/dl (8.6-10.4); Chloride 101 mmol/L (96-108); Globulin 2.4 gm/dL (2.2-3.7); Glomerular Filtration Rate 53; Glucose 117 mg/dL (70-105)
[2019-10-27 07:08] LABS: Carbon Dioxide 25 mmol/L (22-30)
[2019-10-27] MEDS: INSULIN LISPRO 1 UNIT/0.01 ML UNIT SQ SCH ×2 (07:15→12:16)
--- NOTE | 2019-10-27 07:21 | Internal Med Progress Note ---
Medical - PN: Subj Patient information: Note initiated : 10/27/19 at 7:19 am Service Date, if different from initiated Date: [] Patient: Katie Schuster a 78 y/o M admitted on 10/25/19 for Left Anterior Total Hip Arthroplasty. Chief Complaint: [] Interval history: Mr. Schuster is a 78 year old M with a hx of atrial flutter, itral valve insufficiency, s/p repair and high blood pressure who underwent left hip replacement this morning by Orth Dr. Myers. I was called for medical consult due to patient's heart condition and also bleeding 1000 cc during the procedure. Saw and examined patient immediately in PACU. Patient patient was alert and awake. She complains of left hip pain otherwise he did not answer any questions. 10/25 Patient has hip pain and lower back pain that is chronic. Poor sleep past couple nights. No chest pain shortness of breath or new complaints. 10/26 Hematocrit stable. Patient wanted to go home and refusing medications and treatment. Review of Systems: denies headache/fever/chills/nausea/vomiting/chest or abdominal pain/cough/dyspnea/diarrhea. Otherwise see above. - Constitutional Vitals: Vital Signs Temp Pulse Resp BP Pulse Ox 97.8 F 61 14 136/75 94 10/27/19 04:06 10/27/19 06:04 10/27/19 06:04 10/27/19 06:04 10/27/19 06:04 Period Temp Pulse Resp BP Sys/Michelle Pulse Ox Last 24 Hr 97.8 F-98.9 F 48-96 10-24 80-150/45-85 92-100 Intake and Output 10/26/19 10/27/19 10/27/19 21:59 05:59 13:59 Intake Total 2560 300 Output Total 2200 1950 Balance 360 -1650 Weight 102.285 kg Intake & Output: Intake & Output 10/26/19 10/27/19 10/27/19 21:59 05:59 13:59 Intake Total 2560 300 Output Total 2200 1950 Balance 360 -1650 Weight 102.285 kg Intake: IV 1000 Sodium Chloride 0.9% 1,000 ml @ 1000 100 mls/hr IV .Q10H RAMA Rx#: [id number] Oral 1560 300 Output: Urine Catheter Amount 400 Void Amount 1800 1950 Other: Meal Dinner Percent of Meal Consumed 50% Urine Appearance Clear Clear Urine Color Pale Pale Urine Odor Normal Normal Exam: General: Alert, Awake, No acute Distress Eyes/N/T: EOMI, Head/Neck: neck supple, CV: regular with occasional ectopic, 2/6 SM Pulm: Clear b/l, no wheezing/rhonchi/rales Abd: soft, nontender, +BS x4 Ext: no clubbing/cyanosis/edema. LLE dressing intact Neuro: Alert, no focal deficits, moves all extremities, Skin: warm/dry Medical - PN: Obj Da - Labs CBC & Chem 7: 10/27/19 04:27 10/27/19 04:27 Labs: Abnormal Lab Results 10/27/19 10/27/19 10/26/19 04:27 04:27 04:42 WBC RBC Hgb Hct 28.6 L POC Hct MCV MPV Gran % Lymph % (Auto) Hutchinson % (Auto) Gran # Lymph # (Auto) Hutchinson # (Auto) PT INR Carbon Dioxide 20 L Creatinine 1.3 H Glucose 117 H 158 H POC Glucose Calcium 8.5 L 8.3 L AST 44 H Alkaline Phosphatase 34 L 31 L Total Protein 5.8 L 5.3 L Albumin 3.1 L Globulin Triglycerides 10/26/19 10/26/19 10/25/19 04:42 04:42 13:30 WBC RBC 2.68 L Hgb 8.7 L Hct 27.2 L POC Hct MCV 101.5 H MPV 11.3 H Gran % Lymph % (Auto) 7.8 L Hutchinson % (Auto) 15.0 H Gran # 8.48 H Lymph # (Auto) 0.86 L Hutchinson # (Auto) 1.65 H PT 15.6 H INR 1.2 H Carbon Dioxide 19 L Creatinine Glucose 157 H POC Glucose Calcium 8.5 L AST Alkaline Phosphatase 30 L Total Protein 5.2 L Albumin Globulin 1.9 L Triglycerides 10/25/19 10/25/19 10/25/19 13:30 13:30 10:00 WBC 12.0 H RBC 3.17 L Hgb 10.4 L Hct 31.6 L POC Hct 31.0 L MCV MPV 10.7 H Gran % 93.0 H Lymph % (Auto) 5.9 L Hutchinson % (Auto) Gran # 11.17 H Lymph # (Auto) 0.71 L Hutchinson # (Auto) PT INR Carbon Dioxide Creatinine Glucose 214 H POC Glucose 167 H Calcium AST Alkaline Phosphatase 38 L Total Protein 5.7 L Albumin Globulin Triglycerides 174 H Meds: Medications Allopurinol (Zylopriim) 300 mg PO DAILY [facility] Last Admin: 10/26/19 09:28 Dose: 300 mg Documented by: Aspirin (Ecotrin) 325 mg PO BID [facility] Last Admin: 10/26/19 20:11 Dose: 325 mg Documented by: Bisacodyl (Dulcolax) 10 mg GA Q2-3DAYS PRN PRN Reason: Constipation Celecoxib (Celebrex) 200 mg PO BID [facility] Last Admin: 10/26/19 20:12 Dose: 200 mg Documented by: Cyanocobalamin (Vitamin B-12) 2,000 mcg PO DAILY [facility] Last Admin: 10/26/19 09:27 Dose: 2,000 mcg Documented by: Dextrose (Dextrose 50%) 0 ml IV UD PRN PRN Reason: Hypoglycemia Diagnostic Test (Pha) (Accu-Chek) 1 each FS [facility] Last Admin: 10/27/19 06:56 Dose: 1 each Documented by: Docusate Sodium (Colace) 100 mg PO BID [facility] Last Admin: 10/26/19 20:12 Dose: 100 mg Documented by: Docusate Sodium (Colace) 100 mg PO BID [facility] Last Admin: 10/26/19 20:12 Dose: Not Given Documented by: Ferrous Gluconate (Fergon) 324 mg PO DAILY [facility] Last Admin: 10/26/19 09:29 Dose: 324 mg Documented by: Glucose (Insta-Glucose) 15 gm PO PRN PRN PRN Reason: Hypoglycemia Hydromorphone HCl (Dilaudid) 0 mg IV Q2HP PRN; Protocol PRN Reason: Per Pain Protocol Last Admin: 10/25/19 15:51 Dose: 1 mg Documented by: Acetaminophen (Ofirmev) 1,000 mg in 100 mls @ 200 mls/hr IV Q8HP PRN; Protocol PRN Reason: PAIN/FEVER > 101 Last Infusion: 10/25/19 16:39 Dose: Infused Documented by: Insulin Human Lispro (Humalog) 0 unit SQ [facility]; Protocol Last Admin: 10/27/19 07:15 Dose: Not Given Documented by: Labetalol HCl (Trandate) 0 mg IV Q2HP PRN PRN Reason: Hypertension Levothyroxine Sodium (Synthroid) 75 mcg PO QAMAC [facility] Last Admin: 10/27/19 06:42 Dose: 75 mcg Documented by: Lorazepam (Ativan) 0.5 - 1 mg IV Q2HP PRN PRN Reason: Anxiety/Sedation/muscle spasms Last Admin: 10/26/19 04:23 Dose: 1 mg Documented by: Losartan Potassium (Cozaar) 100 mg PO DAILY [facility] Last Admin: 10/26/19 09:27 Dose: 100 mg Documented by: Magnesium Hydroxide (Milk Of Magnesia) 30 ml PO BIDP PRN PRN Reason: Constipation Melatonin (Melatonin 3mg Tablet) 3 mg PO QHS [facility] Last Admin: 10/26/19 20:12 Dose: 3 mg Documented by: Methocarbamol (Robaxin) 750 mg PO Q6HP PRN PRN Reason: Muscle Spasm Last Admin: 10/27/19 02:23 Dose: 750 mg Documented by: Metoprolol Tartrate (Lopressor) 5 mg IV Q2HP PRN PRN Reason: Tachyarrhythmias HR>110 Ondansetron HCl (Zofran) 4 mg IV Q4HP PRN; Protocol PRN Reason: Nausea And Vomiting Last Admin: 10/26/19 11:52 Dose: 4 mg Documented by: Ondansetron HCl (Zofran) 4 mg IV Q4HP PRN PRN Reason: Nausea And Vomiting Oxycodone/Acetaminophen (Percocet 5-325 Mg) 0 tab PO Q4HP PRN PRN Reason: PAIN LEVEL 3-6 Last Admin: 10/27/19 06:42 Dose: 2 tab Documented by: Polyethylene Glycol (Miralax) 17 gm PO DAILYP PRN PRN Reason: Constipation Last Admin: 10/25/19 16:14 Dose: 17 gm Documented by: Senna (Senokot) 2 tab PO HS [facility] Last Admin: 10/26/19 20:12 Dose: 2 tab Documented by: Sodium Biphosphate/Sodium Phosphate (Fleets Adult) 1 dose GA Q3-4DAYS PRN PRN Reason: Constipation Sodium Chloride (Saline Flush) 10 ml IV Q8 [facility] Last Admin: 10/27/19 04:25 Dose: Not Given Documented by: Throat Lozenges (Cepacol) 1 lozenge PO PRN PRN PRN Reason: Sore Throat Torsemide (Demadex) 20 mg PO BIDD [facility] Last Admin: 10/26/19 15:20 Dose: 20 mg Documented by: Vitamin D (Vitamin D3) 5,000 unit PO DAILY [facility] Last Admin: 10/26/19 09:28 Dose: 5,000 unit Documented by: Medical - PN: A/P - Time Spent With Patient Total time spent is greater than 50% in coordination of care (as documented) at patient's floor/unit and/or counseling patient: - Narrative A/P Narrative: *s/p Left TUNDE (10/24): *Anemia, acute blood loss: *Hx of atrial flutter with ablation: -EKG showed sinus or ectopic atrial. *Mitral valve insufficiency, s/p repair: *HTN: *Pre-Diabetes: A1c 6.1 *CKD II-III: *Hypothyroidism: Plan: -Postop management including pain control and DVT prophylaxis by Ortho team -phototypesetting equipment monitor -H/H - ADA diet, Metformin, SSI -cont home ARB -ppx: ASA bid per Ortho
[2019-10-27] MEDS: CELECOXIB 200 MG CAPSULE PO SCH (08:47)
[2019-10-27] MEDS: VITAMIN D3 5,000 UNIT CAPSULE PO SCH (08:47)
[2019-10-27] MEDS: CYANOCOBALAMIN (VITAMIN B-12) 500 MCG TABLET PO SCH (08:47)
[2019-10-27] MEDS: ALLOPURINOL 300 MG TABLET PO SCH (08:47)
[2019-10-27] MEDS: ASPIRIN 325 MG ENTERIC COATED TABLET PO SCH (08:47)
[2019-10-27] MEDS: LOSARTAN 50 MG TABLET PO SCH (08:47)
[2019-10-27] MEDS: FERROUS GLUCONATE 324 MG TABLET PO SCH (08:48)
[2019-10-27] MEDS: DOCUSATE SODIUM 100 MG CAPSULE PO SCH ×2 (08:48)
[2019-10-27] MEDS ORDERED: fentaNYL 25 MCG PATCH TOPICAL SCH (10:00)
--- NOTE | 2019-10-27 14:03 | Orthopedic Progress Note ---
Subjective Patient information: Note initiated : 10/27/19 at 2:01 pm Service Date, if different from initiated Date: [] Patient: Katie Schuster 78 y/o M admitted on 10/25/19 for Left Anterior Total Hip Arthroplasty. Chief Complaint: [] Principal diagnosis: S/P LEFT TUNDE Interval history: complains of bilateral leg pain and back pain Objective Vital signs: Vital Signs Temp Pulse Pulse Resp BP Pulse Ox 10/27/19 12:01 97.3 F 60 16 129/66 100 10/27/19 10:00 12 152/67 97 10/27/19 08:00 98.5 F 12 116/72 98 10/27/19 06:04 61 14 136/75 94 10/27/19 04:06 97.8 F 96 H 14 118/72 95 10/27/19 02:01 50 L 113/58 92 10/27/19 02:00 55 L 10 L 92 10/27/19 01:50 58 L 12 101/57 100 10/27/19 00:41 48 L 14 98 10/27/19 00:06 98.1 F 58 L 20 80/64 97 10/26/19 22:03 15 95/45 96 10/26/19 21:05 95 10/26/19 20:02 98.9 F 18 150/85 97 10/26/19 18:01 57 L 14 139/79 100 10/26/19 16:01 13 102/50 10/26/19 16:00 98 F 10 L 102/50 98 10/26/19 15:09 24 H 113/53 Intake and Output 10/27/19 10/27/19 10/27/19 05:59 13:59 21:59 Intake Total 300 960 Output Total 1950 850 Balance -1650 110 Intake: Oral 300 960 Output: Void Amount 1950 850 Other: Meal Lunch Percent of Meal Consumed 75% Urine Appearance Clear Clear Urine Color Pale Dark Yellow Urine Odor Normal Normal Intake & Output: Intake & Output 10/27/19 10/27/19 10/27/19 05:59 13:59 21:59 Intake Total 300 960 Output Total 1950 850 Balance -1650 110 Intake: Oral 300 960 Output: Void Amount 1950 850 Other: Meal Lunch Percent of Meal Consumed 75% Urine Appearance Clear Clear Urine Color Pale Dark Yellow Urine Odor Normal Normal Dressing: Yes clean, Yes dry Weight bearing status: full Neurological exam IM: Yes neurovascular intact - Labs CBC & BMP: 10/27/19 04:27 10/27/19 04:27 Labs: Orthopedic Labs 10/25/19 10/15/19 13:30 15:05 PT 15.6 H 14.1 INR 1.2 H 1.0 10/27/19 10/26/19 10/26/19 04:27 04:42 04:42 Hgb 8.7 L Hct 28.6 L 27.2 L TNP 10/25/19 10/15/19 13:30 15:05 Hgb 10.4 L 12.8 L Hct 31.6 L 38.6 L Assessment and Plan (1) S/P total hip arthroplasty MRI ordered ? consider epidural hematoma mobilize as tolerated Status: Acute Priority: Medium
--- NOTE | 2019-10-27 14:21 | Discharge Summary ---
Ortho Discharge - TUNDE - Patient Instructions Diet: Regular Diet Activity: activity as tolerated Total Hip Protocol: Follow activity instructions as provided by Physical Therapy. Dressing Care: May shower in 2 days Patient Education: Aspirin (By mouth), Anterior Hip Replacement (GEN) Additional Instructions: Do the exercises at home that physical therapy gave you. Weight bearing as tolerated. [facility] will contact you at home to schedule Physical Therapy You have Dermabond (a dressing with a mesh-like appearance), DO NOT remove mesh. Cover site daily with a new gauze dressing. You may start showering on post op day #2. The Dermabond dressing can get wet. Do not scrub dressing. Pat dry, then place new dry gauze (rewrap with YUE dressing if you had a total knee). To avoid constipation while taking any narcotic pain medication, take an over the counter stool softener/laxative. If you have any questions or concerns call your orthopedic surgeon before going to the emergency room. [facility] has a applications analyst physician 24 hours per day/7 days per week and can be reached at [phone]. Call for fevers above 100.5 or pain not controlled by medication. Your prescriptions are with your discharge information. Some medications were electronically transmitted to your pharmacy of choice. Take Aspirin as prescribed to prevent blood clots (see medication list). - Problem Maintenance (1) S/P total hip arthroplasty Status: Acute Qualifiers: Laterality: right Qualified Code(s): Z96.641 - Presence of right artificial hip joint - Follow Up Plan Follow Up Appointments: Andrew Myers MD [Physician] - 11/09/19 8:20 am Disposition: Home, Self-Care Care Plan Goals: This discharge packet is provided to you to help keep you informed about your care. We want to ensure you get everything you need when you go home. You will also be receiving a call from us in a few days to follow up with you and see how you are doing since your discharge. This gives us a chance to listen to any concerns you maybe experiencing since you were discharged or any additional needs you may have, as well as providing us feedback on your care experience. We strive to always provide excellent care and thank you for your feedback and for choosing [facility]. Prognosis: Good Rehab Potential: Good Overall status at discharge: patient is progressing back to baseline - Orders For Discharge Prescriptions: fentaNYL [Duragesic] 25 mcg TOPICAL Q72H 10 Days #4 patch Prescription Printed Aspirin [Ecotrin] 81 mg PO BID 30 Days #60 tab.ec Transmission Status: Pending to [facility]
== END 2019-10-27 16:00 | disposition home or self-care (01) | DRG 464 ==
LOC: ICU 05:11 → SUR 05:11 → MEDSUR 05:11 → OBSVTOIN 12:00 → ICU 12:00
PROVIDERS: ADMIT Orthopaedic Surgery Orthopaedic Surgery of the Spine; ATTEND Orthopaedic Surgery Orthopaedic Surgery of the Spine

== ENCOUNTER 2020-08-11 18:52 | Inpatient (IN) ==
[2020-08-11] MEDS ORDERED: IOPAMIDOL 100 ML BOTTLE IV ONE (18:53)
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
[2020-08-11 20:09] LABS: POC Creatinine 1.4 mg/dL (0.6-1.2)
[2020-08-11 20:46] LABS: Hematocrit 36.8 % (41.0-55.0); Hemoglobin 11.9 g/dL (13.5-16.5); Mean Cell Volume 102.5 fL (80.0-100.0); Mean Corpuscular HGB Conc 32.3 g/dL (31.0-36.0); Mean Platelet Volume 11.2 fL (7.4-10.4); Platelet Count 166 K/mcL (140-440); RBC 3.59 M/mcL (4.50-5.90); Red Cell Distribution Width 13.7 % (11.5-14.5); WBC 9.4 K/mcL (4.5-11.0)
[2020-08-11 21:10] LABS: ALT/SGPT 15 U/L (<40); AST/SGOT 32 U/L (<40); Albumin 3.8 gm/dL (3.2-5.2); Albumin/Globulin Ratio 1.2 (1.0-2.3); Alkaline Phosphatase 63 U/L (39-117); Bilirubin,Total 0.7 mg/dL (0.1-1.0); Blood Urea Nitrogen 19 mg/dL (8-23); Calcium 9.6 mg/dL (8.6-10.4); Carbon Dioxide 27 mmol/L (22-30); Chloride 99 mmol/L (96-108); Globulin 3.2 gm/dL (2.2-3.7); Glomerular Filtration Rate 48; Glucose 128 mg/dL (70-105)
[2020-08-11 21:19] LABS: Eosinophils % (Manual) 1 % (0-7); Lymphocytes % 13 % (15-49); Macrocytosis 1+ (None Seen); Monocytes % (Manual) 19 % (1-12); Platelet Estimate NORMAL (Normal); Polychromasia 1+ (None Seen); RBC Morphology ABNORMAL (Normal); Segmented Neutrophils % 67 % (38-78)
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
[2020-08-11 22:43] LABS: Appearance,Urine CLEAR (Clear); Bilirubin,Urine Negative (Negative); Color,Urine YELLOW; Culture Indicated,Urine No; Glucose,Urine (UA) Negative (Negative); Ketones,Urine Negative (Negative); Leukocyte Esterase,Urine Negative /ug (Negative); Nitrate,Urine Negative (Negative); Protein,Urine Negative (Negative); Specific Gravity,Urine 1.014 (1.000-1.035); Urine Blood Negative (Negative); Urobilinogen,Urine Negative
[2020-08-11] MEDS ORDERED: LORazepam 1 MG TABLET PO ONE (23:39)
[2020-08-12] MEDS ORDERED: guaiFENesin/CODEINE 10 ML UDC PO PRN (07:18)
[2020-08-12] MEDS ORDERED: POTASSIUM CHLORIDE 40 MEQ in DEXTROSE 5% IN WATER 500 ML IV PRN (07:18)
[2020-08-12] MEDS ORDERED: GABAPENTIN 100 MG CAPSULE PO PRN (07:18)
[2020-08-12] MEDS ORDERED: POLYETHYLENE GLYCOL 3350 17 GM PACKET PO PRN (07:18)
[2020-08-12] MEDS ORDERED: BISACODYL 10 MG SUPP.RECT PR PRN (07:18)
[2020-08-12] MEDS ORDERED: ONDANSETRON 4 MG ODT TABLET SL PRN (07:18)
[2020-08-12] MEDS ORDERED: ACETAMINOPHEN 325 MG TABLET PO PRN (07:18)
[2020-08-12] MEDS ORDERED: IPRATROPIUM/ALBUTEROL 3 ML AMPUL.NEB NEB PRN (07:18)
[2020-08-12] MEDS ORDERED: MAGNESIUM SULFATE 2 GM/50 ML BAG IV PRN (07:18)
[2020-08-12] MEDS ORDERED: ACETAMINOPHEN 650 MG/65 ML BAG IV PRN (07:18)
[2020-08-12] MEDS ORDERED: ONDANSETRON 4 MG/2 ML VIAL IV PRN (07:18)
[2020-08-12] MEDS: LEVOTHYROXINE 75 MCG TABLET PO SCH (07:42)
[2020-08-12] MEDS: 0.9 % SODIUM CHLORIDE 1,000 ML IV SCH (07:42)
[2020-08-12] MEDS ORDERED: metFORMIN 500 MG TAB.XL.24H PO SCH (08:00)
[2020-08-12] MEDS ORDERED: HEPARIN 5,000 UNIT/ML VIAL SQ SCH (09:00)
[2020-08-12] MEDS ORDERED: MULTIVIT,THER IRON,CA,FA & MIN 1 TABLET PO SCH (09:00)
[2020-08-12] MEDS: ALLOPURINOL 300 MG TABLET PO SCH (09:06)
[2020-08-12] MEDS: hydrALAZINE 10 MG TABLET PO SCH ×2 (09:07→20:22)
[2020-08-12] MEDS: SPIRONOLACTONE 25 MG TABLET PO SCH (09:07)
[2020-08-12] MEDS: VITAMIN D3 5,000 UNIT CAPSULE PO SCH (09:07)
--- NOTE | 2020-08-12 09:08 | Cat Scan Report ---
History: Chest injury, elevated D dimer level, chest pain TECHNIQUE: The chest was imaged following injection of 60 cc of intravenous nonionic contrast scanning during pulmonary arterial phase. Sagittal, coronal and axial MIPS images were created. The radiation exposure was limited using dose reduction technology. The patient was prehydrated prior to the exam. FINDINGS: The pulmonary arteries are normal with no intraluminal filling defects. The aorta is normal in caliber and there is no aneurysm or dissection. There is no calcified plaque in the aorta nor the coronary arteries. The heart is normal in size and contour. No pericardial effusion is present. Patient has numerous acute right-sided rib fractures. There are fractures laterally in the right fifth, sixth, seventh and eighth ribs and posteriorly in the sixth, seventh and eighth rib.. There are also fractures at the articulation of the ninth and 10th ribs with the adjacent vertebral bodies. There is moderate displacement of the lateral fractures. No pneumothorax is present. Patient has small amount loculated pleural fluid posteriorly and laterally in the right lower thorax. The largest pocket of fluid is trapped in the major fissure and measures 4 x 5 cm. There are multiple bands of atelectasis in the right lung. Right diaphragm is elevated due to loss of volume. Mild pleural and parenchymal scarring is present in the inferior segment of lingula and there is mild subpleural scarring anteriorly in the left upper lobe. No left-sided effusion is present. Patient has a comminuted predominantly transversely oriented fracture through the body of T8. In retrospect this was present on the prior CT done on 12/26/19. The fracture is much more apparent at this time. There has been reabsorption of bone along the fracture line but there is increasing sclerosis of the surrounding bone marrow. 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 There is a new transverse fracture through the body and pedicles pedicles and extending into the posterior elements of the T5 vertebra. There is no paraspinal hematoma no retropulsion of bone into the central canal. The sternum and shoulders are normal without evidence of fracture. There is generalized fatty infiltration of the liver. No free fluid is seen in the upper abdomen. IMPRESSION: Multiple acute right-sided rib fractures. The patient is at risk of a flail chest. Moderate atelectasis in the right lung but no pneumothorax Multiple loculated small pockets of pleural fluid in the right thorax near the rib fractures. These are probably hematomas and less likely empyema. Nondisplaced fractures at T5 and T8 No evidence of pulmonary emboli Dr. Almanzar was called with the report Interpreted and Authenticated by: James Okeefe 08/12/20
[2020-08-12] MEDS: DOCUSATE SODIUM 100 MG CAPSULE PO SCH ×2 (09:09→20:22)
--- NOTE | 2020-08-12 09:30 | Ultrasound Report ---
History: Elevated serum d-dimer level with shortness of breath FINDINGS: There is normal augmentation and compressibility of the deep veins and saphenous vein in both legs from the groin through the calf. Doppler shows normal waveform patterns. IMPRESSION: Normal exam without evidence of deep venous thrombosis in either leg Interpreted and Authenticated by: James Okeefe 08/12/20
[2020-08-12] MEDS: CYANOCOBALAMIN (VITAMIN B-12) 500 MCG TABLET PO SCH (09:33)
[2020-08-12] MEDS: TORSEMIDE 10 MG TABLET PO SCH ×2 (09:34→16:38)
--- NOTE | 2020-08-12 09:37 | Cat Scan Report ---
History: Trauma with increased confusion TECHNIQUE: The brain was imaged without contrast at 2.5 mm intervals. Sagittal and coronal reformats were created. The radiation exposure was limited using dose reduction technology. FINDINGS: The bone windows show no skull fracture. There is no intracranial hemorrhage or evidence of an acute infarct. There are large confluent areas of decreased attenuation in the white matter, predominantly involving the parietal lobes but also in the frontal and posterior temporal lobes. There is mild generalized atrophy. Lateral ventricles are enlarged. 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 This is unchanged from prior head CT in 2005. The white matter degenerative changes have progressed since that time and the ventricles have enlarged. The enlargement of the ventricles is more likely due to loss of brain parenchyma rather than obstructive hydrocephalus. No abnormal extra-axial fluid collection is present. The visualized sinuses are clear. No abnormality seen in the visualized portions of the orbits. IMPRESSION: No evidence of acute head injury Progressively worsening age-related degenerative changes since 2005 Interpreted and Authenticated by: James Okeefe 08/12/20
[2020-08-12] MEDS: metroNIDAZOLE 500 MG/100 ML BAG IV SCH ×3 (09:46→21:13)
[2020-08-12] MEDS ORDERED: HYDROcodone/APAP 5/325MG TABLET PO PRN (10:37)
[2020-08-12] MEDS ORDERED: fentaNYL 25 MCG PATCH TOPICAL SCH (11:00)
[2020-08-12] MEDS ORDERED: CAPSAICIN 0.025% CREAM.TOP 60GM TOPICAL PRN (11:03)
[2020-08-12] MEDS ORDERED: LIDOCAINE/PRILOCAINE 5 GM TUBE TOPICAL ONE (11:03)
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
[2020-08-12] MEDS: cefTRIAXone 2 GM in DEXTROSE 5% IN WATER 50 ML IV SCH (11:18)
[2020-08-12] MEDS: sitaGLIPtin 50 MG TABLET PO SCH (11:26)
[2020-08-12] MEDS: LIDOCAINE PATCH TOPICAL SCH (11:26)
[2020-08-12] MEDS: ACETAMINOPHEN 500 MG TABLET PO SCH ×2 (12:55→17:17)
[2020-08-12] MEDS: traZODone HCL 100 MG TABLET PO SCH (20:22)
[2020-08-12] MEDS: SENNOSIDES/DOCUSATE SODIUM 1 TAB TABLET PO SCH (20:22)
[2020-08-12] MEDS ORDERED: MELATONIN 3 MG TABLET PO PRN (21:00)
[2020-08-13] MEDS: ACETAMINOPHEN 500 MG TABLET PO SCH ×6 (00:09→23:22)
[2020-08-13] MEDS: metroNIDAZOLE 500 MG/100 ML BAG IV SCH (05:23)
[2020-08-13 07:12] LABS: Basophils # (Auto) 0.01 K/mcL (0.00-0.20); Basophils % (Auto) 0.2 % (0.0-2.0); Eosinophils # (Auto) 0.03 K/mcL (0.00-0.70); Eosinophils % (Auto) 0.5 % (0.0-7.0); Hematocrit 34.8 % (41.0-55.0); Hemoglobin 11.2 g/dL (13.5-16.5); Lymphocytes # (Auto) 1.15 K/mcL (1.50-4.80); Lymphocytes % (Auto) 20.6 % (15.0-49.0); Mean Cell Volume 101.5 fL (80.0-100.0); Mean Corpuscular HGB Conc 32.2 g/dL (31.0-36.0); Mean Platelet Volume 11.3 fL (7.4-10.4); Monocytes # (Auto) 1.16 K/mcL (0.10-0.90); Monocytes % (Auto) 20.8 % (1.0-12.0); Neutrophils % (Auto) 57.9 % (38.0-78.0); Platelet Count 157 K/mcL (140-440); RBC 3.43 M/mcL (4.50-5.90); Red Cell Distribution Width 13.6 % (11.5-14.5); WBC 5.6 K/mcL (4.5-11.0)
[2020-08-13] MEDS: LEVOTHYROXINE 75 MCG TABLET PO SCH (07:32)
[2020-08-13] MEDS: TORSEMIDE 10 MG TABLET PO SCH (07:33)
[2020-08-13 07:40] LABS: ALT/SGPT 15 U/L (<40); AST/SGOT 29 U/L (<40); Albumin 3.5 gm/dL (3.2-5.2); Albumin/Globulin Ratio 1.1 (1.0-2.3); Alkaline Phosphatase 57 U/L (39-117); Bilirubin,Direct < 0.2 mg/dL (0-0.3); Bilirubin,Total 0.5 mg/dL (0.1-1.0); Blood Urea Nitrogen 19 mg/dL (8-23); Carbon Dioxide 26 mmol/L (22-30); Chloride 100 mmol/L (96-108); Globulin 3.3 gm/dL (2.2-3.7); Glomerular Filtration Rate 52; Glucose 135 mg/dL (70-105); Lactate Dehydrogenase 256 U/L (135-225); Phosphorous 3.3 mg/dL (2.5-4.5); Triglycerides 111 mg/dL (<150); Uric Acid 5.2 mg/dL (2.5-8.0)
[2020-08-13] MEDS: 0.9 % SODIUM CHLORIDE 1,000 ML IV SCH ×3 (07:42→23:21)
[2020-08-13] MEDS ORDERED: LORazepam 2 MG/ML VIAL ONE (08:22)
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
[2020-08-13] MEDS: sitaGLIPtin 50 MG TABLET PO SCH (09:45)
[2020-08-13] MEDS: cefTRIAXone 2 GM in DEXTROSE 5% IN WATER 50 ML IV SCH (09:45)
[2020-08-13] MEDS: CYANOCOBALAMIN (VITAMIN B-12) 500 MCG TABLET PO SCH (09:45)
[2020-08-13] MEDS: ALLOPURINOL 300 MG TABLET PO SCH (09:46)
[2020-08-13] MEDS: hydrALAZINE 10 MG TABLET PO SCH ×2 (09:46→20:55)
[2020-08-13] MEDS: SPIRONOLACTONE 25 MG TABLET PO SCH (09:46)
[2020-08-13] MEDS: DOCUSATE SODIUM 100 MG CAPSULE PO SCH ×2 (09:46→20:55)
[2020-08-13] MEDS: VITAMIN D3 5,000 UNIT CAPSULE PO SCH (09:46)
[2020-08-13] MEDS: CITALOPRAM 20 MG TABLET PO SCH (10:23)
[2020-08-13] MEDS: LIDOCAINE PATCH TOPICAL SCH (10:23)
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
[2020-08-13] MEDS: SENNOSIDES/DOCUSATE SODIUM 1 TAB TABLET PO SCH (20:55)
[2020-08-13] MEDS: traZODone HCL 100 MG TABLET PO SCH (20:55)
[2020-08-14] MEDS: ACETAMINOPHEN 500 MG TABLET PO SCH ×2 (02:26→07:28)
[2020-08-14 06:36] LABS: Basophils # (Auto) 0.03 K/mcL (0.00-0.20); Basophils % (Auto) 0.6 % (0.0-2.0); Eosinophils # (Auto) 0.03 K/mcL (0.00-0.70); Eosinophils % (Auto) 0.6 % (0.0-7.0); Hematocrit 36.6 % (41.0-55.0); Hemoglobin 11.5 g/dL (13.5-16.5); Lymphocytes # (Auto) 1.15 K/mcL (1.50-4.80); Lymphocytes % (Auto) 22.9 % (15.0-49.0); Mean Cell Volume 104.9 fL (80.0-100.0); Mean Corpuscular HGB Conc 31.4 g/dL (31.0-36.0); Mean Platelet Volume 10.9 fL (7.4-10.4); Monocytes # (Auto) 0.89 K/mcL (0.10-0.90); Monocytes % (Auto) 17.7 % (1.0-12.0); Neutrophils % (Auto) 58.2 % (38.0-78.0); Platelet Count 166 K/mcL (140-440); RBC 3.49 M/mcL (4.50-5.90); Red Cell Distribution Width 13.4 % (11.5-14.5)
[2020-08-14 07:10] LABS: ALT/SGPT 14 U/L (<40); AST/SGOT 27 U/L (<40); Albumin 3.3 gm/dL (3.2-5.2); Albumin/Globulin Ratio 1.1 (1.0-2.3); Alkaline Phosphatase 54 U/L (39-117); Bilirubin,Direct < 0.2 mg/dL (0-0.3); Bilirubin,Total 0.4 mg/dL (0.1-1.0); Blood Urea Nitrogen 18 mg/dL (8-23); Calcium 9.1 mg/dL (8.6-10.4); Carbon Dioxide 26 mmol/L (22-30); Chloride 103 mmol/L (96-108); Globulin 3.1 gm/dL (2.2-3.7); Glomerular Filtration Rate 57; Glucose 156 mg/dL (70-105); Lactate Dehydrogenase 262 U/L (135-225); Triglycerides 116 mg/dL (<150); Uric Acid 4.6 mg/dL (2.5-8.0)
[2020-08-14] MEDS: LEVOTHYROXINE 75 MCG TABLET PO SCH (07:28)
[2020-08-14] MEDS ORDERED: LORazepam 2 MG/ML VIAL IV ONE (08:01)
--- NOTE | 2020-08-14 09:28 | XRay Report ---
CLINICAL INFORMATION: sob COMPARISON: 06/26/2020 FINDINGS: The heart is moderately enlarged - increased. Mild thoracic aortic ectasia noted. Mediastinum otherwise normal. Marked reticular nodular airspace disease is seen diffusely throughout both lungs - new from exam less than two months ago. Pulmonary vessels are obscured by airspace disease appear to be mildly distended IMPRESSION: Marked diffuse reticulonodular airspace disease throughout both lungs is new from the comparison exam seven weeks ago. The heart is also moderately enlarged and pulmonary vessels are, at least, mildly distended. This may all represent atypical CHF however, infection or aspiration also possible. Correlation with BNP and other clinical data supportive oor refutive of CHF may be helpful Interpreted and Authenticated by: López Peters 08/14/20
[2020-08-14] MEDS: CYANOCOBALAMIN (VITAMIN B-12) 500 MCG TABLET PO SCH (09:48)
[2020-08-14] MEDS: CITALOPRAM 20 MG TABLET PO SCH (09:49)
[2020-08-14] MEDS: VITAMIN D3 5,000 UNIT CAPSULE PO SCH (09:49)
[2020-08-14] MEDS: hydrALAZINE 10 MG TABLET PO SCH (09:49)
[2020-08-14] MEDS: ALLOPURINOL 300 MG TABLET PO SCH (09:49)
[2020-08-14] MEDS: sitaGLIPtin 50 MG TABLET PO SCH (09:49)
[2020-08-14] MEDS: DOCUSATE SODIUM 100 MG CAPSULE PO SCH (09:49)
[2020-08-14] MEDS: 0.9 % SODIUM CHLORIDE 1,000 ML IV SCH (09:50)
--- NOTE | 2020-08-14 10:24 | Magnetic Resonance Report ---
CLINICAL INFORMATION: Confusion. History of fall COMPARISON: Head CT 08/11/2020. Brain MRI 02/07/2006 TECHNIQUE:Sagittal T1 FLAIR, axial T1 FLAIR, T2 FLAIR propeller, T2 propeller, gradient, diffusion, ADC and coronal T2 weighted images were acquired. 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 The ventricles sulci and fissures are symmetrically enlarged compatible with mild atrophy - expected for age There are no extra-axial fluid collections appreciated. Extensive chronic ischemic changes in the cerebral white matter, with confluence the deep periventricular region, have progressed moderately in size and number over the past 14 years. No regions of restricted diffusion, edema, hemorrhage or other acute findings. Signal void in intracerebral arteries, extra-axial cranial nerves, pituitary orbits are normal. Small amount of fluid on the left mastoid air cells. IMPRESSION: Mild atrophy and moderate chronic ischemic changes in the deep cerebral white matter - expected for age. They have progressed from a remote MR 14 years prior. No posttraumatic or other acute intracerebral findings Interpreted and Authenticated by: López Peters 08/14/20
[2020-08-14] MEDS: LIDOCAINE PATCH TOPICAL SCH (11:28)
== END 2020-08-14 12:40 | disposition home health service (06) | DRG 199 ==
LOC: ED 18:52 → MEDSUR 18:52
PROVIDERS: ADMIT Internal Medicine; ATTEND Internal Medicine